=== PATIENT | male | born 1985 | race Caucasian/White ===

== ENCOUNTER 2019-11-15 18:30 | Emergency (ER) | payer BC, OTHER ==
[~2019-11-15] VITALS: Ht 180.3 cm; Wt 88.5 kg
[~2019-11-15 18:30] MED LIST: CEPH500 PO; FAMO20 PO; HYDACE5 PO; HYDR25SUP PR; IBUP800 PO; METR500 PO; MUPI2TO TOP; NAPR500 PO; PENVK500 PO; PROC10 PO; PROM25 PO; RXPENVK250 PO; SULTRIDS PO; TRAM50 PO
[2019-11-15] MEDS ORDERED: Percocet 5-3251 EACH PO (20:42)
== END 2019-11-15 20:54 | disposition home or self-care (01) ==
LOC: ER 18:30
DX: S42.001A Fracture of unspecified part of right clavicle, initial encounter for closed fracture (principal); V86.96XA Unspecified occupant of dirt bike or motor/cross bike injured in nontraffic accident, initial encounter
CPT/HCPCS: 29105; 71046; 73010; 73030; 99283-25; A9270; A9270-GY

== ENCOUNTER 2019-11-21 08:45 | Day surgery (SDC) | payer BC, OTHER ==
[~2019-11-21] VITALS: Ht 175.3 cm; Wt 88.7 kg
[~2019-11-21 08:45] MED LIST changes: +Percocet 5-3251 EACH PO
--- NOTE | 2019-11-21 16:35 | NUR ---
Discharge instructions reviewed with patient. Patient verbalizes understanding. Copy given to patient to take home. Discharged via wheelchair to private car for ride home.PATIENT REPORTS PAIN TOLERABLE.
--- NOTE | 2019-11-22 12:14 | NUR ---
11/22/19 1214 Mirella Cote VERIFICATIONS: EDIT CHART.
== END 2019-11-21 23:44 | disposition home or self-care (01) ==
LOC: ORD 08:45 → ORSCMMR 08:45 → ORD 23:44
PROVIDERS: Orthopaedic Surgery
PROC: 0PS904Z Reposition Right Clavicle with Internal Fixation Device, Open Approach (ICD-10-PCS; principal; 2019-11-21 11:00)
DX: S42.021A Displaced fracture of shaft of right clavicle, initial encounter for closed fracture (principal)
CPT/HCPCS: C1713; J0690; J1100; J2250; J2405; J2704; J2710; J2765; J3010; J7120

== ENCOUNTER → 2020-09-09 | Outpatient (CLI) | payer BC, OTHER ==
[~2020-09-09] MED LIST changes: +APRISO0.375 GM
[2020-09-11 01:10] LABS: ADENOVIRUS F 40/41 Not Detected (Not Detected); ASTROVIRUS Not Detected (Not Detected); C DIFFICILE TOXIN A/B Not Detected (Not Detected); CRYPTOSPORIDIUM Not Detected (Not Detected); CYCLOSPORA CAYETANENSIS Not Detected (Not Detected); ENTAMOEBA HISTOLYTICA Not Detected (Not Detected); ENTEROAGGREGATIVE E COLI Not Detected (Not Detected); ENTEROPATHOGENIC E COLI Not Detected (Not Detected); ENTEROTOXIGENIC E COLI Not Detected (Not Detected); GIARDIA LAMBLIA Not Detected (Not Detected); NOROVIRUS GI/GII Detected (Not Detected); PLESIOMONAS SHIGELLOIDES Not Detected (Not Detected); ROTAVIRUS A Not Detected (Not Detected); SALMONELLA Not Detected (Not Detected); SAPOVIRUS Not Detected (Not Detected); SHIGA-TOXIN-PRODUCING E COLI Not Detected (Not Detected); SHIGELLA/ENTEROINVASIVE E COLI Not Detected (Not Detected); VIBRIO Not Detected (Not Detected); VIBRIO CHOLERAE Not Detected (Not Detected); YERSINIA ENTEROCOLITICA Not Detected (Not Detected)
== END | disposition home or self-care (01) ==
LOC: LAB 09:33 → LAB SHORT 09:33 → LAB FUT 09-08 16:35
PROVIDERS: Internal Medicine Gastroenterology
DX: K51.30 Ulcerative (chronic) rectosigmoiditis without complications (principal)
CPT/HCPCS: 0097U

== ENCOUNTER 2020-10-19 07:17 | Day surgery (SDC) | payer BC, OTHER ==
[~2020-10-19] VITALS: Ht 172.7 cm; Wt 88.1 kg
[~2020-10-19 07:17] MED LIST changes: -APRISO0.375 GM
[2020-10-19] MEDS ORDERED: APRISO0.375 GM (07:28)
== END 2020-10-19 09:15 | disposition home or self-care (01) ==
LOC: ORSCSDS 07:17
PROVIDERS: Internal Medicine Gastroenterology
PROC: 0DBE8ZX Excision of Large Intestine, Via Natural or Artificial Opening Endoscopic, Diagnostic (ICD-10-PCS; principal; 2020-10-19 08:30)
DX: K51.30 Ulcerative (chronic) rectosigmoiditis without complications (principal); D50.9 Iron deficiency anemia, unspecified; K62.89 Other specified diseases of anus and rectum; Z79.899 Other long term (current) drug therapy
CPT/HCPCS: 88305; J0330; J0461; J2250; J2405; J2704; J7120

== ENCOUNTER 2022-05-26 07:45 | Day surgery (SDC) | payer OTHER ==
[~2022-05-26] VITALS: Ht 177.8 cm; Wt 94.8 kg
[~2022-05-26 07:45] MED LIST changes: +APRISO0.375 GM
[2022-05-26] MEDS ORDERED: Prednisone10 MG (08:06)
[2022-05-26] MEDS ORDERED: HUMIRA PEN PSO1 EACH (08:06)
[2022-05-26] MEDS ORDERED: BUDE.25 (08:06)
== END 2022-05-26 10:14 | disposition home or self-care (01) ==
LOC: ORSCSDS 07:45
PROVIDERS: Student in an Organized Health Care Education/Training Program
PROC: 0DBL8ZX Excision of Transverse Colon, Via Natural or Artificial Opening Endoscopic, Diagnostic (ICD-10-PCS; principal; 2022-05-26 09:00)
PROC: 0DBE8ZX Excision of Large Intestine, Via Natural or Artificial Opening Endoscopic, Diagnostic (ICD-10-PCS; principal; 2022-05-26 09:00)
DX: K51.30 Ulcerative (chronic) rectosigmoiditis without complications (principal); D12.3 Benign neoplasm of transverse colon; K64.8 Other hemorrhoids; K64.4 Residual hemorrhoidal skin tags; Z79.899 Other long term (current) drug therapy
CPT/HCPCS: 88305; J2250; J2405; J2704; J7120

== ENCOUNTER 2022-07-31 05:17 | Emergency (ER) | payer OTHER ==
[~2022-07-31] VITALS: Ht 175.3 cm; Wt 83.9 kg
[~2022-07-31 05:17] MED LIST changes: +BUDE.25; +HUMIRA PEN PSO1 EACH; +Prednisone10 MG
== END 2022-07-31 09:35 | disposition home or self-care (01) ==
LOC: ER 05:17
DX: F15.129 Other stimulant abuse with intoxication, unspecified (principal); F10.129 Alcohol abuse with intoxication, unspecified; Z79.899 Other long term (current) drug therapy
CPT/HCPCS: 36415; J2060; J7030

== ENCOUNTER 2024-10-21 12:28 | Emergency (ER) | payer OTHER ==
[~2024-10-21] VITALS: Ht 177.8 cm; Wt 90.7 kg
[2024-10-21] MEDS ORDERED: Proparacaine 0.5% Opth Soln 15 ML BTL LEFTEYE ONE (12:55)
[2024-10-21] MEDS ORDERED: Fluorescein Sod 1MG Opth Strips LEFTEYE ONE (13:00)
[2024-10-21 13:14] VITALS: BP 128/82
[2024-10-21] MEDS ORDERED: HUMIRA(CF)40 MG/0.4 SC (13:14)
== END 2024-10-21 14:07 | disposition home or self-care (01) ==
LOC: ER 12:28
DX: S02.40DB Maxillary fracture, left side, initial encounter for open fracture (principal); H20.9 Unspecified iridocyclitis; W22.8XXA Striking against or struck by other objects, initial encounter
CPT/HCPCS: 70450; 70480; 99283-25; A9270; A9270-GY